=== PATIENT | female | born 1935 | race Caucasian/White ===

== ENCOUNTER 2021-08-02 00:36 | Inpatient (IN) | payer OTHER ==
[~2021-08-02] VITALS: Ht 167.6 cm; Wt 56.7 kg
--- NOTE | 2021-08-02 00:52 | NUR ---
Patient back from Ct scan and placed on all monitors. No signs of distress or change in patient condition.
[2021-08-02 01:07] LABS: BASOPHILS # (AUTO) 0.1 K/uL (0.0-0.2); BASOPHILS % (AUTO) 0.9 % (0.0-2.0); EOSINOPHILS # (AUTO) 0.4 K/uL (0.0-0.4); EOSINOPHILS % (AUTO) 6.5 % (0.0-4.0); HEMATOCRIT 29.8 % (36-48); HEMOGLOBIN 9.7 g/dL (12.0-16.0); LYMPHOCYTES # (AUTO) 1.4 K/uL (1.0-5.5); LYMPHOCYTES % (AUTO) 21.8 % (20.5-51.5); MEAN CORPUSCULAR HEMOGLOBIN 24 pg (27-31); MEAN CORPUSCULAR HGB CONC 33 % (32-36); MEAN CORPUSCULAR VOLUME 75 fL (79.0-98.0); MONOCYTES # (AUTO) 0.6 K/uL (0.0-1.0); MONOCYTES % (AUTO) 8.6 % (1.7-9.3); NEUTROPHILS # (AUTO) 4.1 K/uL (1.8-7.7); NEUTROPHILS % (AUTO) 62.2 % (40.0-70.0); PLATELET COUNT (AUTO) 297 K/uL (130-430); RED BLOOD CELL COUNT(AUTO) 3.97 MIL/uL (4.2-6.2); RED CELL DISTRIBUTION WIDTH 15.1 % (9.0-15.0); WHITE BLOOD COUNT (AUTO) 6.5 K/uL (4.8-10.8)
[2021-08-02 01:14] LABS: ANION GAP 9 (5-15); CALCIUM 7.9 mg/dL (8.4-11.0); CHLORIDE 103 mmol/L (98-107); CREATININE 0.99 mg/dL (0.55-1.30); GLUCOSE 113 mg/dL (70-99); POTASSIUM 3.9 mmol/L (3.5-5.1); SODIUM SERUM 136 mmol/L (136-145); UREA NITROGEN, BLOOD 18 mg/dL (8-21)
[2021-08-02 01:15] LABS: PROTHROMBIN TIME 10.4 SECS (9.5-12.5)
--- NOTE | 2021-08-02 01:17 | NUR ---
PT ON TELE MONITOR WITH NEUROLOGIST FOR STROKE PROTOCOL. PT ABLE TO NAME ONE OUT OF FOUR OBJECTS SUCCESSFULLY. MD FOOTE
[2021-08-02 01:22] LABS: ALANINE AMINOTRANSFERASE 14 U/L (12-78); ALBUMIN 3.1 g/dL (3.4-4.8); ASPARTATE AMINOTRANSFERASE 14 U/L (10-37); TOTAL BILIRUBIN 0.2 mg/dL (0.0-1.0)
[2021-08-02] MEDS ORDERED: iohexoL 240 mgI/mL, 150 ML INFUS..BTL IV ONE (01:28)
--- NOTE | 2021-08-02 01:28 | NUR ---
EKG GIVEN TO DR. REIS FOR INTERPRETATION.
[2021-08-02] MEDS ORDERED: PRED20TA PO (01:33)
[2021-08-02] MEDS ORDERED: GABA-529 PO (01:33)
[2021-08-02] MEDS ORDERED: CYCL10TA24 PO (01:33)
[2021-08-02] MEDS ORDERED: UBID1CAP60 PO (01:33)
[2021-08-02] MEDS ORDERED: ASCO500T20 PO (01:33)
[2021-08-02] MEDS ORDERED: CALC-1196 PO (01:33)
[2021-08-02] MEDS ORDERED: ALPHAGAN1 OP (01:33)
[2021-08-02] MEDS ORDERED: LEVO137T32 PO (01:33)
[2021-08-02] MEDS ORDERED: MULT-1089 PO (01:33)
[2021-08-02] MEDS ORDERED: HYDR-3610 PO (01:33)
[2021-08-02] MEDS ORDERED: BIMA2.5D6 EACH EYE (01:33)
[2021-08-02] MEDS ORDERED: VITA-219 PO (01:33)
[2021-08-02] MEDS ORDERED: FLUT1DIS5 IH (01:33)
[2021-08-02] MEDS ORDERED: METO25TA6 PO (01:33)
[2021-08-02] MEDS ORDERED: ALBU8.5H8 INH (01:33)
[2021-08-02] MEDS ORDERED: NOR10 PO (01:33)
[2021-08-02] MEDS ORDERED: CALC-808 PO (01:33)
[2021-08-02] MEDS ORDERED: RABE20TA18 PO ×2 (01:33)
[2021-08-02] MEDS ORDERED: DULO60CA42 PO (01:33)
--- NOTE | 2021-08-02 01:34 | NUR ---
Pt neuro reevaluated at this time with assistance of 2 RNs and
[2021-08-02] MEDS ORDERED: ASPIRIN 325 MG TABLET PO ONE (01:45)
--- NOTE | 2021-08-02 05:20 | NUR ---
Pt son updated on patient's status and patient's plan of care. Pt's son at bedside at this time. Pt has normal skin color for ethnicity. respirations even and unlabored. No signs of acute distress.
--- NOTE | 2021-08-02 06:00 | NUR ---
ADMIT NOTE Received pt from ER to the floor with a diagnosis of TIA. Admission process initiated. patient oriented to pain management, safety and call light-teach back done.
[2021-08-02 06:05] VITALS: BP_SYST 146
--- NOTE | 2021-08-02 06:19 | NUR ---
Report given to SHIRA Lima
--- NOTE | 2021-08-02 06:26 | NUR ---
..CONSULTATION PAGED REASON FOR CONSULTATION:TIA WAS CONSULT CALLED?Y -PERSON WHO WAS NOTIFIED:TEXT MESSAGED COLTON ALFARO CONSULTING PHYSICIAN:COLTON ALFARO QUALITY CONTROL SYSTEMS MANAGER SPECIALTY:NEURO QUALITY CONTROL SYSTEMS MANAGER PHONE NUMBER:[phone] REQUESTING PHYSICIAN:
[2021-08-02 07:19] LABS: BASOPHILS # (AUTO) 0.1 K/uL (0.0-0.2); EOSINOPHILS # (AUTO) 0.4 K/uL (0.0-0.4); EOSINOPHILS % (AUTO) 5.6 % (0.0-4.0); HEMATOCRIT 29.4 % (36-48); HEMOGLOBIN 9.4 g/dL (12.0-16.0); LYMPHOCYTES # (AUTO) 1.2 K/uL (1.0-5.5); LYMPHOCYTES % (AUTO) 17.9 % (20.5-51.5); MEAN CORPUSCULAR HEMOGLOBIN 24 pg (27-31); MEAN CORPUSCULAR HGB CONC 32 % (32-36); MEAN CORPUSCULAR VOLUME 74 fL (79.0-98.0); MONOCYTES # (AUTO) 0.6 K/uL (0.0-1.0); NEUTROPHILS # (AUTO) 4.6 K/uL (1.8-7.7); NEUTROPHILS % (AUTO) 66.5 % (40.0-70.0); PLATELET COUNT (AUTO) 281 K/uL (130-430); RED BLOOD CELL COUNT(AUTO) 3.99 MIL/uL (4.2-6.2); RED CELL DISTRIBUTION WIDTH 15.1 % (9.0-15.0); WHITE BLOOD COUNT (AUTO) 6.9 K/uL (4.8-10.8)
[2021-08-02 07:32] LABS: ANION GAP 6 (5-15); CHLORIDE 103 mmol/L (98-107); GLUCOSE 104 mg/dL (70-99); POTASSIUM 4.2 mmol/L (3.5-5.1); SODIUM SERUM 133 mmol/L (136-145); UREA NITROGEN, BLOOD 22 mg/dL (8-21)
[2021-08-02 07:38] LABS: ALANINE AMINOTRANSFERASE 17 U/L (12-78); ALBUMIN 2.9 g/dL (3.4-4.8); ASPARTATE AMINOTRANSFERASE 21 U/L (10-37); TOTAL BILIRUBIN 0.1 mg/dL (0.0-1.0)
--- NOTE | 2021-08-02 07:48 | NUR ---
Received patient in bed resting comfortably, AAOX4. Patient presents calm and cooperative. No s/sx of pain or discomfort. Respirations are non-labored. Skin is clean, warm and dry to touch. IV access is patent, secure, no s/sx of redness or swelling observed. Bed is locked in lowest position, call light in reach. Nurse will continue care and monitor for changes in status.
[2021-08-02] MEDS: NACL 0.9% 1,000 ML IV SCH ×2 (07:53→23:00)
[2021-08-02] MEDS: ASPIRIN 81 MG TAB.CHEW PO SCH (09:00)
[2021-08-02 09:41] VITALS: BP_SYST 108
[2021-08-02 11:38] VITALS: BP_SYST 120
--- NOTE | 2021-08-02 11:56 | NUR ---
Patient in bed resting comfortably. No s/sx of pain or discomfort. Respirations are non-labored. Skin is clean, warm and dry to touch. IV access is patent, secure, no s/sx of redness or swelling observed. Bed is locked in lowest position, call light in reach. Nurse will continue care and monitor for changes in status.
--- NOTE | 2021-08-02 17:23 | NUR ---
ST EVALUATION COMPLETED. ST TX NOT INDICATED AT THIS TIME. RECOMMEND PO DIET OF GLUTEN FREE MECHANICAL SOFT WITH CHOPPED MEAT AND THIN LIQUIDS. SET UP AND DISTANT SUPERVISION FOR ASPIRATION PRECAUTIONS.
--- NOTE | 2021-08-02 17:30 | NUR ---
Nurse left message for Aleksandr MOTLEY, for possible orders for pain management. Patient c/o 5/10 generalized pain. Awaiting for further instructions.
--- NOTE | 2021-08-02 19:30 | NUR ---
OPENING NOTE/PAIN REPORT RECEIVED FROM DAYSHIFT NURSE. PATIENT RECEIVED LYING IN BED, AWAKE, COMPLAINING OF PAIN AND STATED HER NURSE HAS NOT GIVEN HER ANYTHING ALL DAY. I INFORMED HER THAT I WILL CALL THE DOCTOR RIGHT AWAY AND GET HER SOME MEDICINE. BREATHING IS EVEN AND UNLABORED. HOB RAISED. IVF IS NOT HUNG, AM NURSE SAID HE DID NOT GET TO IT. IV SITE IS PATENT, NO SIGNS OF INFILTRATION OR INFECTION NOTED. CALL LIGHT WITH PATIENT. BED ALARM ON. BED IS LOCKED AND AT LOWEST POSITION. WILL CONTINUE TO MONITOR.
[2021-08-02 20:00] VITALS: BP_SYST 180
[2021-08-02] MEDS: MORPHINE 2 MG/ML INJ. SYRINGE IVP PRN (20:05)
[2021-08-02 21:00] VITALS: BP_SYST 149
[2021-08-02] MEDS: ATORVASTATIN 20 MG TABLET PO SCH (21:03)
[2021-08-02] MEDS ORDERED: DIPHENHYDRAMINE HCL 12.5 MG/5 ML UDC PO ONE (22:30)
[2021-08-03] VITALS (9 sets, daily range): BP systolic 124–189
[2021-08-03] MEDS: MORPHINE 2 MG/ML INJ. SYRINGE IVP PRN ×4 (01:51→19:52)
[2021-08-03] MEDS ORDERED: ASPIRIN 81 MG TAB.CHEW PO ONE (03:00)
--- NOTE | 2021-08-03 03:00 | NUR ---
ELEVATED BP/CHEST PAIN PATIENT COMPLAINED OF 8/10 CHEST PAIN, STATING SHE FEELS TIGHTNESS IN HER CHEST. VITALS TAKEN, BP IS ELEVATED, NOTED IN VITALS INTERVENTION. INFORMED DR. SANCHEZ, ORDERS GIVEN FOR TROP DRAW, EKG STAT, ASPIRIN AND NITRO. WILL CARRY OUT ORDER.
[2021-08-03] MEDS: NITROGLYCERIN 0.4 MG TAB.SUBL SL PRN ×2 (03:11→03:20)
--- NOTE | 2021-08-03 03:20 | NUR ---
REASSESSMENT AFTER ADMINISTERING NITRO X 2, PATIENT'S VITALS STABLE, PATIENT STATES SHE FEELS BETTER. RT AT ROOM FINISHING EKG.
[2021-08-03] MEDS: LEVOTHYROXINE SODIUM 0.137 MG TABLET PO SCH (06:14)
--- NOTE | 2021-08-03 06:48 | NUR ---
CLOSING NOTE PATIENT IN BED, AWAKE, WATCHING VIDEOS ON PHONE. BREATHING IS EVEN AND UNLABORED. NO S/S OF ACUTE DISTRESS. HOB RAISED. IVF INFUSING WELL, IV SITE PATENT, NO SIGNS OF INFILTRATION OR INFECTION NOTED. SKIN WARM AND DRY TO TOUCH. ALL NEEDS MET THROUGHOUT SHIFT. FALL AND SAFETY PRECAUTIONS MAINTAINED THROUGHOUT SHIFT. WILL CONTINUE TO MONITOR UNTIL PATIENT CARE IS ENDORSED TO ONCOMING DAYSHIFT NURSE.
--- NOTE | 2021-08-03 08:23 | NUR ---
Nurse informed Aleksandr regarding patient LV=480/104, HR=88 requesting orders to manage increased BP. Nurse was informed that orders would be input into system for follow up. Pateint stable, noc/o pain or discomfort. Nurse will monitor for changes in status. Charge nurse SHIRA Mensah, aware.
[2021-08-03] MEDS: ASPIRIN 81 MG TAB.CHEW PO SCH (08:30)
[2021-08-03] MEDS: METOPROLOL TARTRATE 25 MG TABLET PO SCH ×2 (08:31→20:40)
[2021-08-03] MEDS: amLODIPine BESYLATE 5 MG TABLET PO SCH (08:31)
--- NOTE | 2021-08-03 08:39 | NUR ---
CONSULT CARDIOLOGY CHEST PAIN DR COTO [phone] DR COTO IS ROUNDING AND IS AWARE OF CONSULT
--- NOTE | 2021-08-03 12:02 | NUR ---
Patient in bed resting comfortably, No s/sx of pain or discomfort. Respirations are non-labored. Skin is clean, warm and dry to touch. IV access is patent, secure, no s/sx of redness or swelling observed. Patient is medication compliant, no s/sx or adverse reactions reported or observed. Bed is locked in lowest position, call light in reach. Nurse will continue care and monitor for changes in status.
[2021-08-03] MEDS: ONDANSETRON HCL 4 MG/2 ML VIAL IVP PRN (12:03)
--- NOTE | 2021-08-03 15:58 | NUR ---
Nurse spoke with Aleksandr MOTLEY, regarding tt=[phone]. Nurse requested possible PRN medication for bp management and safety. Nur5se informed orders will be input into system bt Aleksandr MOTLEY. Nurse will follow up accordingly. No s/sx of distress or discomfort. Patient AAOX4, able to express needs.
[2021-08-03] MEDS: NACL 0.9% 1,000 ML IV SCH (16:21)
--- NOTE | 2021-08-03 18:32 | NUR ---
Patient in bed resting comfortably, No s/sx of pain or discomfort. Respirations are non-labored. Skin is clean, warm and dry to touch. IV access is patent, secure, no s/sx of redness or swelling observed. Bed is locked in lowest position, call light in reach. Nurse will endorse patient to plant operator/shift supervisor nurse for continue care.
--- NOTE | 2021-08-03 19:15 | NUR ---
OPENING NOTE RECEIVED PATIENT IN BED, RESTING, NO S/S OF ACUTE DISTRESS. BREATHING EVEN AND UNLABORED. HOB RAISED. IVF INFUSING WELL. IV SITE PATENT, NO SIGNS OF INFILTRATION OR INFECTION NOTED. CALL LIGHT WITH PATIENT. BED ALARM ON. WILL CONTINUE TO MONITOR.
[2021-08-03] MEDS: ATORVASTATIN 20 MG TABLET PO SCH (20:38)
[2021-08-03] MEDS ORDERED: LORazepam 2 MG/ML VIAL IVP ONE (23:00)
--- NOTE | 2021-08-03 23:00 | NUR ---
HIGH ALERT NOTE: Called Dr. SANCHEZ back and identified within the medical roster to verify physician authenticity.
[2021-08-04] VITALS: BP_SYST 170
[2021-08-04] MEDS: hydrALAZINE HCL 20 MG/ML VIAL IVP PRN ×3 (00:04→11:30)
[2021-08-04] MEDS: ONDANSETRON HCL 4 MG/2 ML VIAL IVP PRN ×4 (02:19→21:37)
[2021-08-04] MEDS: MORPHINE 2 MG/ML INJ. SYRINGE IVP PRN ×4 (02:20→21:10)
[2021-08-04 03:00] VITALS: BP_SYST 140
[2021-08-04] MEDS: LEVOTHYROXINE SODIUM 0.137 MG TABLET PO SCH (06:04)
--- NOTE | 2021-08-04 06:36 | NUR ---
CLOSING NOTE PATIENT IN BED, RESTING. NO S/S OF ACUTE DISTRESS. BREATHING EVEN AND UNLABORED. IVF INFUSING WELL. IV SITE PATENT, NO SIGNS OF INFILTRATION OR INFECTION NOTED. ALL NEEDS MET THROUGHOUT SHIFT. FALL AND SAFETY PRECAUTIONS MAINTAINED. WILL CONTINUE TO MONITOR UNTIL PATIENT CARE IS ENDORSED TO ONCOMING DAYSHIFT NURSE.
--- NOTE | 2021-08-04 07:20 | NUR ---
Opening note Received SBAR from night RN. Patient in bed respirations even, non labored, bed in low and locked position call light within reach, bed alarm on.
[2021-08-04 07:30] LABS: ALANINE AMINOTRANSFERASE 13 U/L (12-78); ALBUMIN 3.5 g/dL (3.4-4.8); ANION GAP 13 (5-15); ASPARTATE AMINOTRANSFERASE 26 U/L (10-37); CALCIUM 8.2 mg/dL (8.4-11.0); CHLORIDE 99 mmol/L (98-107); CREATININE 0.74 mg/dL (0.55-1.30); GLUCOSE 133 mg/dL (70-99); POTASSIUM 3.1 mmol/L (3.5-5.1); SODIUM SERUM 135 mmol/L (136-145); THYROID STIMULATING HORMONE 3.57 uIu/mL (0.36-3.74); TOTAL BILIRUBIN 0.2 mg/dL (0.0-1.0); UREA NITROGEN, BLOOD 12 mg/dL (8-21)
[2021-08-04 08:00] VITALS: BP_SYST 170
--- NOTE | 2021-08-04 08:00 | NUR ---
pain patient complaining of pain 6/10 to the back, repositioned patient, patient requesting pain medication
[2021-08-04] MEDS: amLODIPine BESYLATE 5 MG TABLET PO SCH (08:43)
[2021-08-04] MEDS: ASPIRIN 81 MG TAB.CHEW PO SCH (08:44)
[2021-08-04] MEDS: METOPROLOL TARTRATE 25 MG TABLET PO SCH ×2 (08:44→21:02)
[2021-08-04] MEDS: NACL 0.9% 1,000 ML IV SCH ×2 (08:52→13:28)
--- NOTE | 2021-08-04 09:25 | NUR ---
BP REASSESSED BP AFTER MEDICATIONS BP 150/72, RESPIRATIONS 16
[2021-08-04 10:20] LABS: CHOLESTEROL 212 mg/dL (<200); HDL CHOLESTEROL 57 mg/dL (>55); LDL CHOLESTEROL 133 mg/dL (<100); TRIGLYCERIDES 90 mg/dL (30-150)
--- NOTE | 2021-08-04 11:15 | NUR ---
ELEVATED BP 187/89 HR 74. WILL ADMINISTER MEDICATION
--- NOTE | 2021-08-04 11:39 | NUR ---
NURSE NOTE PATIENT IN BED, RESPIRATIONS EVEN, NON LABORED, BED IN LOW AND LOCKED POSITION, CALL LIGHT WITHIN REACH, BED ALARM ON. EYES CLOSED NO SIGNS OF DISTRESS NOTED
--- NOTE | 2021-08-04 11:47 | NUR ---
LOW POTASSIUM INFORMED DR SANCHEZ OF POTASSIUM 3.1 NEW ORDERS RECEIVED
--- NOTE | 2021-08-04 11:49 | NUR ---
HIGH ALERT NOTE: Called back at number identified within the medical roster to verify physician authenticity.
[2021-08-04 12:00] VITALS: BP_SYST 187
--- NOTE | 2021-08-04 12:37 | NUR ---
AMBULATION ASSISTED PATIENT WITH AMBULATION TO THE BATHROOM. PATIENT VOIDED, MISSED THE CAP AND WAS NOT ABLE TO COLLECT THE URINE FOR UA. PATIENT AMBULATED BACK TO BED.
--- NOTE | 2021-08-04 12:52 | NUR ---
BP re assessed BP after medication. 141/75 75bpm. Patient denies any pain
[2021-08-04] MEDS ORDERED: POTASSIUM CHLORIDE 40 MEQ in NS 250 ML IV ONE (13:00)
--- NOTE | 2021-08-04 14:45 | NUR ---
PAIN COMPLAINING OF PAIN710 TO BACK, REPOSITION, REQUESTED MEDICATION
--- NOTE | 2021-08-04 15:35 | NUR ---
IV RE-INSERTION: removed iv from Left AC. unable to flush. Re-inserted 22g rt ac. flushed freely, will monitor for signs of infiltration
[2021-08-04 16:00] VITALS: BP_SYST 140
--- NOTE | 2021-08-04 18:50 | NUR ---
NURSE NOTE PATIENT IN BED, RESPIRATIONS EVEN, NON LABORED, BED IN LOW AND LOCKED POSITION, CALL LIGHT WITHIN REACH, BED ALARM ON. PATIENT DOES NOT FEEL LIKE EATING DINNER, ASKED FOR BROTH. PROVIDED PATIENT WITH CHICKEN BROTH.
--- NOTE | 2021-08-04 19:15 | NUR ---
OPENING NOTES Patient resting in bed - no s/s pain or distress noted. Respirations even and unlabored - head of bed elevated. IV site patent - no s/s redness, infection, or infiltration. Bed locked and in lowest position. Call light within reach - bed alarm on.
--- NOTE | 2021-08-04 19:20 | NUR ---
CLOSING NOTE PROVIDED SBAR TO NIGHT RN, PATIENT IN BED, RESPIRATIONS EVEN, NON LABORED, BED IN LOW AND LOCKED POSITION CALL LIGHT WITHIN REACH, BED ALARM ON. IVF'S RUNNING DIRECTED. ENDORSED UA TO NIGHT RN, ENDORSED CARE TO NIGHT RN
[2021-08-04 20:00] VITALS: BP_SYST 137
--- NOTE | 2021-08-04 20:35 | NUR ---
IV SITE DISLODGED NEW IV SITE RFA 22G
[2021-08-04] MEDS: ATORVASTATIN 20 MG TABLET PO SCH (21:02)
[2021-08-04 21:18] LABS: BILIRUBIN,URINE NEGATIVE (NEGATIVE); BLOOD, URINE NEGATIVE (NEGATIVE); CLARITY/URINE CLEAR (CLEAR); COLOR,URINE YELLOW (YELLOW); GLUCOSE,URINE NEGATIVE (NEGATIVE); KETONES,URINE 1+ (NEGATIVE); LEUKOCYTE ESTERASE ,URINE NEGATIVE (NEGATIVE); NITRITE, URINE NEGATIVE (NEGATIVE); PH,URINE 6.5 (5.0-8.0); PROTEIN URINE NEGATIVE (NEGATIVE); UROBILINOGEN,URINE 0.2 (0.2-1.0)
--- NOTE | 2021-08-04 23:43 | NUR ---
PATIENT COMPLAINING OF ANXIETY UNABLE TO SLEEP NOTIFIED DR. VAUGHN ORDERS 1MG IVP ANXIETY Q4HP FOR ANXIETY
[2021-08-05] VITALS: BP_SYST 143
[2021-08-05] MEDS: LORazepam 2 MG/ML VIAL IVP PRN ×3 (00:04→22:29)
[2021-08-05] MEDS: LEVOTHYROXINE SODIUM 0.137 MG TABLET PO SCH (06:37)
[2021-08-05] MEDS: ONDANSETRON HCL 4 MG/2 ML VIAL IVP PRN ×2 (06:41→17:55)
[2021-08-05] MEDS: MORPHINE 2 MG/ML INJ. SYRINGE IVP PRN ×2 (06:42→17:45)
--- NOTE | 2021-08-05 07:29 | NUR ---
OPENING NOTES Patient resting in bed - no s/s pain or distress noted. Respirations even and unlabored - head of bed elevated. IV site patent - no s/s redness, infection, or infiltration. Bed locked and in lowest position. Call light within reach - bed alarm on. Addendum: 08/05/21 at 0730 by Nelson Castillo RN THESE ARE CLOSING NOTES
[2021-08-05 07:49] LABS: BASOPHILS # (AUTO) 0.1 K/uL (0.0-0.2); BASOPHILS % (AUTO) 0.7 % (0.0-2.0); EOSINOPHILS # (AUTO) 0.3 K/uL (0.0-0.4); EOSINOPHILS % (AUTO) 3.9 % (0.0-4.0); HEMOGLOBIN 11.7 g/dL (12.0-16.0); LYMPHOCYTES # (AUTO) 1.2 K/uL (1.0-5.5); LYMPHOCYTES % (AUTO) 14.6 % (20.5-51.5); MEAN CORPUSCULAR HEMOGLOBIN 24 pg (27-31); MEAN CORPUSCULAR HGB CONC 33 % (32-36); MEAN CORPUSCULAR VOLUME 72 fL (79.0-98.0); MONOCYTES # (AUTO) 0.7 K/uL (0.0-1.0); MONOCYTES % (AUTO) 8.2 % (1.7-9.3); NEUTROPHILS # (AUTO) 5.8 K/uL (1.8-7.7); NEUTROPHILS % (AUTO) 72.6 % (40.0-70.0); PLATELET COUNT (AUTO) 337 K/uL (130-430); RED BLOOD CELL COUNT(AUTO) 4.83 MIL/uL (4.2-6.2); RED CELL DISTRIBUTION WIDTH 15.6 % (9.0-15.0)
[2021-08-05 07:51] VITALS: BP_SYST 149
--- NOTE | 2021-08-05 08:07 | NUR ---
OPENING NOTES: Received patient in bed, alert, oriented x 3, able to make needs known, has BEAVER. Safety precaution observed, bed alarm on, side rails up for safety, call light within reach. No signs of distress noted. Will continue to monitor.
[2021-08-05] MEDS: METOPROLOL TARTRATE 25 MG TABLET PO SCH ×2 (08:09→22:28)
[2021-08-05] MEDS: ASPIRIN 81 MG TAB.CHEW PO SCH (08:09)
[2021-08-05] MEDS: amLODIPine BESYLATE 5 MG TABLET PO SCH (08:10)
[2021-08-05 11:26] VITALS: BP_SYST 145
--- NOTE | 2021-08-05 11:36 | NUR ---
Spoke to Dr. Ron (RE: repeat Covid Test Rapid): Spoke to Dr. Ron that the patient brother stated, " he tested positive for Covid after visiting the patient". Per verbal order from Dr. Ron, repeat Rapid covid test for patient.
--- NOTE | 2021-08-05 13:00 | NUR ---
Nurse Note: Patient ate with assist. No swallowing problem observed. Safety precaution observed. Kept clean and dry, bed alarm on, side rails up for safety, call light within reach. Will continue to monitor.
[2021-08-05 15:50] VITALS: BP_SYST 154
--- NOTE | 2021-08-05 16:50 | NUR ---
Pt refused PT today, x3 attempts. Will try again tomorrow, RN notified.
[2021-08-05] MEDS: NACL 0.9% 1,000 ML IV SCH (17:59)
--- NOTE | 2021-08-05 18:23 | NUR ---
CLOSING NOTES: Patient alert, oriented, verbally responsive. Patient kept clean and dry, bedside commode provided, all needs met throughout shift. Peripheral IV patent and infusing well. Safety precaution observed, bed alarm on, side rails up for safety, call light within reach. Will continue to monitor until nightclub manager RN.
[2021-08-05 22:20] VITALS: BP_SYST 134
[2021-08-05] MEDS: ATORVASTATIN 20 MG TABLET PO SCH (22:27)
[2021-08-06] VITALS (7 sets, daily range): BP systolic 132–161
[2021-08-06] MEDS: ONDANSETRON HCL 4 MG/2 ML VIAL IVP PRN ×2 (03:51→22:32)
[2021-08-06] MEDS: MORPHINE 2 MG/ML INJ. SYRINGE IVP PRN ×2 (03:52→16:35)
[2021-08-06] MEDS: NACL 0.9% 1,000 ML IV SCH (03:57)
[2021-08-06] MEDS: LEVOTHYROXINE SODIUM 0.137 MG TABLET PO SCH (07:10)
[2021-08-06 07:30] LABS: BASOPHILS # (AUTO) 0.1 K/uL (0.0-0.2); EOSINOPHILS # (AUTO) 0.4 K/uL (0.0-0.4); EOSINOPHILS % (AUTO) 5.7 % (0.0-4.0); HEMATOCRIT 37.8 % (36-48); HEMOGLOBIN 12.3 g/dL (12.0-16.0); MEAN CORPUSCULAR HEMOGLOBIN 24 pg (27-31); MEAN CORPUSCULAR HGB CONC 33 % (32-36); MEAN CORPUSCULAR VOLUME 73 fL (79.0-98.0); MONOCYTES # (AUTO) 0.5 K/uL (0.0-1.0); MONOCYTES % (AUTO) 7.1 % (1.7-9.3); NEUTROPHILS # (AUTO) 4.8 K/uL (1.8-7.7); NEUTROPHILS % (AUTO) 71.2 % (40.0-70.0); PLATELET COUNT (AUTO) 318 K/uL (130-430); RED BLOOD CELL COUNT(AUTO) 5.18 MIL/uL (4.2-6.2); RED CELL DISTRIBUTION WIDTH 15.5 % (9.0-15.0); WHITE BLOOD COUNT (AUTO) 6.7 K/uL (4.8-10.8)
[2021-08-06] MEDS: ASPIRIN 81 MG TAB.CHEW PO SCH (09:41)
[2021-08-06] MEDS: amLODIPine BESYLATE 5 MG TABLET PO SCH (09:41)
[2021-08-06] MEDS: METOPROLOL TARTRATE 25 MG TABLET PO SCH ×2 (09:42→22:32)
[2021-08-06] MEDS: LORazepam 2 MG/ML VIAL IVP PRN ×2 (09:44→22:34)
[2021-08-06] MEDS ORDERED: AMLO5TAB4 PO (11:10)
[2021-08-06] MEDS ORDERED: LIP20 PO (11:10)
[2021-08-06] MEDS ORDERED: ASA81 PO (11:10)
--- NOTE | 2021-08-06 17:44 | NUR ---
Patient is still weak, and i discussed with her if her desire is to go home. She stated she would like to leave today and get better at home. Patient does have HH ordered and family is coming to pick patient up. Addendum: 08/06/21 at 1846 by [facility] Eight automatic punch press operator DC instructions were given to patient and daughter. Patient performed teach back, and is aware of POC. Family is also aware of patient POC and outcomes. Family will cotton picking machine operator patient after 19:00
--- NOTE | 2021-08-06 20:30 | NUR ---
Patient resting in bed, unlabored breathing on room air. Patient's daughter Char texted patient that she will pick her up at 9 PM. Call light in reach, fall and safety precautions in place.
--- NOTE | 2021-08-06 22:15 | NUR ---
Spoke on phone with patient's daughter, who stated she would be here at 10:30 PM. Patient complained of pain, nausea, and anxiety. Patient is able to get up to bedside commode with moderate assistance but is weak/unsteady. Call light in reach, fall and safety precautions in place.
[2021-08-06] MEDS: ATORVASTATIN 20 MG TABLET PO SCH (22:31)
--- NOTE | 2021-08-06 23:30 | NUR ---
Patient's daughter Char arrived after 2300, now at bedside. Daughter stated "I don't think she's ready to go home. She looks terrible and sounds awful." She also expressed concern about being able to care for patient at home because she stated that she herself is disabled and has multiple medical conditions and is the primary caregiver for her mother. Daughter requested evaluation for placement of patient at rehab facility or SNF. Informed daughter of plan for home health/PT. Daughter stated she might be ok with this but still has concerns about her mother being discharged home, and would like to speak with Dr. Cabrera in the morning. Informed Dr. Zheng who gave order to hold discharge for [facility] for Dr. Cabrera to evaluate tomorrow.
[2021-08-07] VITALS: BP_SYST 152
[2021-08-07] MEDS: MORPHINE 2 MG/ML INJ. SYRINGE IVP PRN ×3 (00:04→19:29)
[2021-08-07] MEDS: LORazepam 2 MG/ML VIAL IVP PRN ×2 (05:27→22:08)
[2021-08-07] MEDS: NACL 0.9% 1,000 ML IV SCH (06:56)
[2021-08-07] MEDS: LEVOTHYROXINE SODIUM 0.137 MG TABLET PO SCH (06:57)
[2021-08-07 07:10] LABS: BASOPHILS # (AUTO) 0.1 K/uL (0.0-0.2); EOSINOPHILS # (AUTO) 0.4 K/uL (0.0-0.4); EOSINOPHILS % (AUTO) 5.3 % (0.0-4.0); HEMATOCRIT 35.8 % (36-48); HEMOGLOBIN 11.7 g/dL (12.0-16.0); LYMPHOCYTES # (AUTO) 0.9 K/uL (1.0-5.5); LYMPHOCYTES % (AUTO) 13.6 % (20.5-51.5); MEAN CORPUSCULAR HEMOGLOBIN 24 pg (27-31); MEAN CORPUSCULAR HGB CONC 33 % (32-36); MEAN CORPUSCULAR VOLUME 72 fL (79.0-98.0); MONOCYTES # (AUTO) 0.6 K/uL (0.0-1.0); MONOCYTES % (AUTO) 8.6 % (1.7-9.3); NEUTROPHILS # (AUTO) 4.9 K/uL (1.8-7.7); NEUTROPHILS % (AUTO) 71.5 % (40.0-70.0); PLATELET COUNT (AUTO) 307 K/uL (130-430); RED BLOOD CELL COUNT(AUTO) 4.94 MIL/uL (4.2-6.2); RED CELL DISTRIBUTION WIDTH 15.6 % (9.0-15.0); WHITE BLOOD COUNT (AUTO) 6.9 K/uL (4.8-10.8)
--- NOTE | 2021-08-07 07:30 | NUR ---
Patient alert, resting in bed. Complained of anxiety, nausea, and pain during night. PRN medications given. BP in 140s. Able to get up to bedside commode with moderate assistance, but unsteady and weak. New IV placed. Call light in reach, fall and safety precautions in place.
--- NOTE | 2021-08-07 07:35 | NUR ---
MORNING ROUNDS: PATIENT,SLEEPING DURING ROUNDS. IV FLUIDS RUNNING AT RIGHT HAND INTACT. ROOM AIR.WITH GOOD SATURATION. CALL LIGHT WITH IN REACH.NO ACUTE DISTRESS. BED ALARM ON. CONTINUE TO MONITOR.
[2021-08-07 07:53] LABS: ALANINE AMINOTRANSFERASE 13 U/L (12-78); ALBUMIN 3.1 g/dL (3.4-4.8); ANION GAP 13 (5-15); ASPARTATE AMINOTRANSFERASE 25 U/L (10-37); CALCIUM 7.4 mg/dL (8.4-11.0); CHLORIDE 102 mmol/L (98-107); CREATININE 0.69 mg/dL (0.55-1.30); GLUCOSE 84 mg/dL (70-99); SODIUM SERUM 137 mmol/L (136-145); TOTAL BILIRUBIN 0.3 mg/dL (0.0-1.0); UREA NITROGEN, BLOOD 12 mg/dL (8-21)
[2021-08-07 08:05] VITALS: BP_SYST 149
[2021-08-07] MEDS: ASPIRIN 81 MG TAB.CHEW PO SCH (09:14)
[2021-08-07] MEDS: METOPROLOL TARTRATE 25 MG TABLET PO SCH ×2 (09:15→21:00)
[2021-08-07] MEDS: amLODIPine BESYLATE 5 MG TABLET PO SCH (09:15)
[2021-08-07 09:33] LABS: POTASSIUM 2.6 mmol/L (3.5-5.1)
--- NOTE | 2021-08-07 09:44 | NUR ---
HIGH ALERT NOTE: Called Dr. Cabrera back at his identified within the medical roster to verify physician authenticity.
[2021-08-07] MEDS ORDERED: POTASSIUM CHLORIDE 40 MEQ in 0.45% NS 250 ML IV ONE (09:45)
[2021-08-07] MEDS: POTASSIUM CHLORIDE 20 mEq in 100 mL (PREMIX) 100 ML x 2 doses IV SCH ×2 (11:06→12:58)
[2021-08-07 12:23] VITALS: BP_SYST 144
[2021-08-07 16:43] VITALS: BP_SYST 128
--- NOTE | 2021-08-07 17:02 | NUR ---
DAUGHTER CALLED: SPOKE WITH NICHOLAS REGARDING PATIENT HAS LOW POTASSIUM,REPLACEMENT WERE ORDERED BY MD.UPDATE DATES GIVEN .NO DC ORDER TODAY.
--- NOTE | 2021-08-07 17:05 | NUR ---
Dietitian Recommendations * Mechanical soft diet, Ensure Enlive TID * Encourage increase PO intakes LP, RD Please refer to Nutrition Assessment for details. Addendum: 08/07/21 at [address] Amended: Links added. Addendum: 08/07/21 at [address] CORRECTION: Dietitian Recommendations * Mechanical soft, gluten-free diet, Ensure Enlive TID * Encourage increase PO intakes LP, RD
--- NOTE | 2021-08-07 18:46 | NUR ---
EVENING ROUNDS: SLEEPING DURING ROUNDS. IV FLUIDS RUNNING AT LEFT WRIST INTACT. CALL LIGHT WITH IN REACH. BED LOCKED AT LOWEST POSITION. BED ALARM ON.NO ACUTE DISTRESS.
[2021-08-07 19:32] VITALS: BP_SYST 128
--- NOTE | 2021-08-07 20:00 | NUR ---
Patient able to get out of bed to bedside commode with standbye assist due to vision problem, no dizziness
[2021-08-07] MEDS: ATORVASTATIN 20 MG TABLET PO SCH (20:59)
[2021-08-07 22:00] VITALS: BP_SYST 148
--- NOTE | 2021-08-07 22:00 | NUR ---
Patient verbalized having anxiety , V/S wnl , Ativan IV push given slowly , safety/fall precaution initiated , call light within reach will monitor.
--- NOTE | 2021-08-07 22:33 | NUR ---
Chuyita Cabrera s/w Estefanía
[2021-08-08 00:10] VITALS: BP_SYST 124
[2021-08-08] MEDS ORDERED: DIPHENHYDRAMINE HCL 25 MG CAPSULE PO ONE (01:45)
--- NOTE | 2021-08-08 01:49 | NUR ---
PATIENT RESTING: Patient resting quietly. No acute distress noted. telemetry NSR .
--- NOTE | 2021-08-08 02:00 | NUR ---
Complaining of itchiness in all the extremities dry rashes mild redness flaky skin lotion applied , Benadryl po given
[2021-08-08] MEDS: NACL 0.9% 1,000 ML IV SCH ×2 (02:03→16:26)
--- NOTE | 2021-08-08 03:12 | NUR ---
IV RE-INSERTION: IV cannula in right hand accidentally removed. Restarted on right AC. Successful after 1 attempts. Resumed current IVF . Will observe for any signs of infiltration.
[2021-08-08] MEDS: MORPHINE 2 MG/ML INJ. SYRINGE IVP PRN ×2 (03:38→20:28)
[2021-08-08 07:03] LABS: BASOPHILS # (AUTO) 0.1 K/uL (0.0-0.2); BASOPHILS % (AUTO) 0.9 % (0.0-2.0); EOSINOPHILS # (AUTO) 0.5 K/uL (0.0-0.4); EOSINOPHILS % (AUTO) 7.7 % (0.0-4.0); HEMATOCRIT 38.2 % (36-48); HEMOGLOBIN 12.4 g/dL (12.0-16.0); LYMPHOCYTES # (AUTO) 1.1 K/uL (1.0-5.5); LYMPHOCYTES % (AUTO) 16.8 % (20.5-51.5); MEAN CORPUSCULAR HEMOGLOBIN 24 pg (27-31); MEAN CORPUSCULAR HGB CONC 32 % (32-36); MEAN CORPUSCULAR VOLUME 73 fL (79.0-98.0); MONOCYTES # (AUTO) 0.4 K/uL (0.0-1.0); MONOCYTES % (AUTO) 6.8 % (1.7-9.3); NEUTROPHILS # (AUTO) 4.4 K/uL (1.8-7.7); NEUTROPHILS % (AUTO) 67.8 % (40.0-70.0); PLATELET COUNT (AUTO) 304 K/uL (130-430); RED BLOOD CELL COUNT(AUTO) 5.22 MIL/uL (4.2-6.2); RED CELL DISTRIBUTION WIDTH 15.6 % (9.0-15.0); WHITE BLOOD COUNT (AUTO) 6.4 K/uL (4.8-10.8)
--- NOTE | 2021-08-08 07:35 | NUR ---
MORNING ROUNDS: PATIENT FAST ASLEEP DURING ROUNDS. CALL LIGHT WITH IN REACH. BED LOCKED AT LOWEST POSITION. NO ACUTE DISTRESS.
[2021-08-08 08:00] VITALS: BP_SYST 156
[2021-08-08] MEDS ORDERED: POTASSIUM CHLORIDE 40 MEQ in NS 250 ML IV ONE (09:00)
[2021-08-08] MEDS: LEVOTHYROXINE SODIUM 0.137 MG TABLET PO SCH (09:29)
[2021-08-08] MEDS: POTASSIUM CHLORIDE 20 MEQ/PKT PACKET PO SCH (09:30)
[2021-08-08] MEDS: METOPROLOL TARTRATE 25 MG TABLET PO SCH ×2 (09:30→20:26)
[2021-08-08] MEDS ORDERED: POTASSIUM CHLORIDE 20 mEq in 100 mL (PREMIX) 100 ML x 2 doses IV SCH (09:30)
[2021-08-08] MEDS: ASPIRIN 81 MG TAB.CHEW PO SCH (09:31)
[2021-08-08] MEDS: amLODIPine BESYLATE 5 MG TABLET PO SCH (09:31)
[2021-08-08 11:25] LABS: ANION GAP 13 (5-15); CALCIUM 8.1 mg/dL (8.4-11.0); CHLORIDE 103 mmol/L (98-107); CREATININE 0.55 mg/dL (0.55-1.30); GLUCOSE 88 mg/dL (70-99); POTASSIUM 3.2 mmol/L (3.5-5.1); SODIUM SERUM 138 mmol/L (136-145); UREA NITROGEN, BLOOD 9 mg/dL (8-21)
[2021-08-08] MEDS ORDERED: POTASSIUM CHLORIDE 40 MEQ in 0.45% NS 250 ML IV SCH (12:00)
[2021-08-08 12:48] VITALS: BP_SYST 150
--- NOTE | 2021-08-08 15:50 | NUR ---
Verified Orders: Spoke with Dr Cabrera was paged 3x,to call for Dr. Ron consumer banker today.With orders from Dr. Ron, okay to give k-rider 40meq x1 dose for potassium 3.2. Will inform Dr Lyons regarding this order.
[2021-08-08 16:38] VITALS: BP_SYST 112
[2021-08-08] MEDS ORDERED: POTASSIUM CHLORIDE 40 MEQ in 0.45% NS 250 ML IV ONE (17:00)
--- NOTE | 2021-08-08 18:29 | NUR ---
PHYSICAL THERAPY CO-SIGN The Physical Therapy Progress Notes documented by Canal Structure Operator have been reviewed. Reviewed/Co-Signed by: Ramila Sharma PT Documentation Done by:AGATA MARISCAL DEVELOPMENTAL TRAINING COUNSELOR Addendum: 08/08/21 at 1829 by Ramila Sharma PT Amended: Links added.
--- NOTE | 2021-08-08 18:54 | NUR ---
EVENING ROUNDS: PATIENT AWAKE,ON HER PHONE. K-RIDER IV ON GOING. CALL LIGHT WITH IN REACH. BED LOCKED AT LOWEST POSITION.SAFETY MEASURES RENDERED. NOT IN ANY DISTRESS.
[2021-08-08 20:24] VITALS: BP_SYST 117
[2021-08-08] MEDS: ATORVASTATIN 20 MG TABLET PO SCH (20:26)
[2021-08-08] MEDS: ONDANSETRON HCL 4 MG/2 ML VIAL IVP PRN (23:45)
[2021-08-08] MEDS: LORazepam 2 MG/ML VIAL IVP PRN (23:55)
[2021-08-09 01:39] VITALS: BP_SYST 140
[2021-08-09] MEDS: MORPHINE 2 MG/ML INJ. SYRINGE IVP PRN (02:44)
[2021-08-09] MEDS: NACL 0.9% 1,000 ML IV SCH (05:40)
[2021-08-09 06:59] LABS: BASOPHILS % (AUTO) 0.5 % (0.0-2.0); EOSINOPHILS # (AUTO) 0.4 K/uL (0.0-0.4); EOSINOPHILS % (AUTO) 4.4 % (0.0-4.0); HEMOGLOBIN 11.2 g/dL (12.0-16.0); LYMPHOCYTES % (AUTO) 11.8 % (20.5-51.5); MEAN CORPUSCULAR HEMOGLOBIN 24 pg (27-31); MEAN CORPUSCULAR HGB CONC 33 % (32-36); MEAN CORPUSCULAR VOLUME 72 fL (79.0-98.0); MONOCYTES # (AUTO) 0.7 K/uL (0.0-1.0); MONOCYTES % (AUTO) 7.7 % (1.7-9.3); NEUTROPHILS # (AUTO) 6.7 K/uL (1.8-7.7); NEUTROPHILS % (AUTO) 75.6 % (40.0-70.0); PLATELET COUNT (AUTO) 308 K/uL (130-430); RED BLOOD CELL COUNT(AUTO) 4.69 MIL/uL (4.2-6.2); RED CELL DISTRIBUTION WIDTH 15.8 % (9.0-15.0); WHITE BLOOD COUNT (AUTO) 8.9 K/uL (4.8-10.8)
[2021-08-09 08:10] VITALS: BP_SYST 150
--- NOTE | 2021-08-09 08:10 | NUR ---
Patient resting comfortably in bed with no distress noted at this time.
[2021-08-09 08:23] LABS: ANION GAP 9 (5-15); CALCIUM 7.8 mg/dL (8.4-11.0); CHLORIDE 105 mmol/L (98-107); CREATININE 0.71 mg/dL (0.55-1.30); GLUCOSE 101 mg/dL (70-99); POTASSIUM 3.7 mmol/L (3.5-5.1); SODIUM SERUM 136 mmol/L (136-145); UREA NITROGEN, BLOOD 16 mg/dL (8-21)
[2021-08-09] MEDS: ASPIRIN 81 MG TAB.CHEW PO SCH (08:35)
[2021-08-09] MEDS: POTASSIUM CHLORIDE 20 MEQ/PKT PACKET PO SCH (08:35)
[2021-08-09] MEDS: amLODIPine BESYLATE 5 MG TABLET PO SCH (08:36)
[2021-08-09] MEDS: LEVOTHYROXINE SODIUM 0.137 MG TABLET PO SCH (08:36)
[2021-08-09] MEDS: METOPROLOL TARTRATE 25 MG TABLET PO SCH (08:37)
--- NOTE | 2021-08-09 08:38 | NUR ---
Scheduled medications given per order. Patient stable at this time.
--- NOTE | 2021-08-09 08:49 | NUR ---
Patient assisted to bedside commode at back to bed. Patient eating breakfast at this time.
--- NOTE | 2021-08-09 10:15 | NUR ---
Patient resting comfortably in bed with eyes closed; stable with no distress noted at this time.
--- NOTE | 2021-08-09 10:18 | NUR ---
OPTUM/MARYCARMEN BOBBY INFORMED THAT PT IS GOING TO [facility] , RM 331A. SPOKE TO MARLON CONFIRMED BED ASSIGNEMENT. RSI WILL INSIDE ACCOUNT EXECUTIVE PT AT 1300.
--- NOTE | 2021-08-09 10:55 | NUR ---
Called report to SHIRA Isaac at [facility] . Patient will go to Room 331A.
--- NOTE | 2021-08-09 12:10 | NUR ---
Patient ambulating with walker in hallway with Magdy PT; contact guard assist.
[2021-08-09 12:30] VITALS: BP_SYST 147
--- NOTE | 2021-08-09 14:50 | NUR ---
Patient assisted to bedside commode and back to bed. Stable at this time.
--- NOTE | 2021-08-09 15:00 | NUR ---
Discharge Patient transferred in stable condition via ambulance and with all personal belongings to [facility]. Patient will go to Room 331A.
--- NOTE | 2021-08-12 08:39 | NUR ---
PHYSICAL THERAPY CO-SIGN The Physical Therapy Progress Notes documented by Crozer Operator have been reviewed. Reviewed/Co-Signed by: Chico Lee Documentation Done by: SYDNI MARISCAL PTA Addendum: 08/12/21 at 0839 by Chico Lee PT Amended: Links added.
== END 2021-08-09 15:00 | DRG 69 ==
LOC: SED 00:36 → STU 03:33
PROVIDERS: ADMIT Internal Medicine Hospice and Palliative Medicine; ATTEND Internal Medicine Hospice and Palliative Medicine
DX: G45.9 Transient cerebral ischemic attack, unspecified (principal); N17.0 Acute kidney failure with tubular necrosis; E44.1 Mild protein-calorie malnutrition; E87.1 Hypo-osmolality and hyponatremia; E03.9 Hypothyroidism, unspecified; E78.5 Hyperlipidemia, unspecified; I10 Essential (primary) hypertension; I25.10 Atherosclerotic heart disease of native coronary artery without angina pectoris; J44.9 Chronic obstructive pulmonary disease, unspecified; M19.90 Unspecified osteoarthritis, unspecified site; F32.A Depression, unspecified; G89.29 Other chronic pain; K21.9 Gastro-esophageal reflux disease without esophagitis; R74.01 Elevation of levels of liver transaminase levels; E86.0 Dehydration; Z20.822 Contact with and (suspected) exposure to COVID-19; Z88.8 Allergy status to other drugs, medicaments and biological substances; Z79.899 Other long term (current) drug therapy; Z85.850 Personal history of malignant neoplasm of thyroid; Z90.710 Acquired absence of both cervix and uterus; Z68.20 Body mass index [BMI] 20.0-20.9, adult
CPT/HCPCS: 36415; 70450-TC; 70496; 70498; 71045; 76376; 80048; 80053; 80061; 81003; 82962; 83735; 84443; 84484; 85025; 85610-TC; 85730-TC; 86886; 86900; 86901; 92610-GN; 93005; 93306; 95816; 97110-GP; 97116-GP; 97530-GP; 99285; G0378; J0360; J2060; J2270; J2405; J3480; J7050; Q0163; Q9966